=== PATIENT | female | born 1950 | race African-American/Black ===

== ENCOUNTER 2022-12-26 08:38 | Day surgery (SDC) | payer OTHER ==
[2022-12-24 15:20] VITALS: BMI 32.5
[2022-12-26 10:10] VITALS: RESP 16; TEMP 98
[2022-12-26 10:33] VITALS: BP 121/62; PULSE 62
== END 2022-12-26 10:38 | disposition home or self-care (01) ==
LOC: FASU-ENDO 08:38
PROVIDERS: ATTEND Internal Medicine Gastroenterology
PROC: 0DJD8ZZ Inspection of Lower Intestinal Tract, Via Natural or Artificial Opening Endoscopic (ICD-10-PCS; principal; 2022-12-26 09:44)
DX: Z12.11 Encounter for screening for malignant neoplasm of colon (principal); K57.30 Diverticulosis of large intestine without perforation or abscess without bleeding